=== PATIENT | female | born 1950 | race Two or more races ===

== ENCOUNTER 2021-11-11 08:00 | Outpatient (CLI) | payer OTHER | END 2021-11-11 08:30 | disposition home or self-care (01) | LOC: PPH VACUNA 08:00 | PROVIDERS: ATTEND Emergency Medicine Pediatric Emergency Medicine | DX: Z23 Encounter for immunization (principal) ==

== ENCOUNTER 2024-12-27 18:53 | Emergency (ER) | payer OTHER ==
[~2024-12-27] VITALS: Ht 157.5 cm; Wt 98.0 kg
[2024-12-27] MEDS ORDERED: HUMALOG100 UNIT/2 (19:47)
[2024-12-27] MEDS ORDERED: LANTUS SOL100 UNIT/1 (19:47)
[2024-12-27] MEDS ORDERED: TENORMIN25 MG (19:47)
[2024-12-27] MEDS ORDERED: COZAAR25 MG (19:47)
[2024-12-27] MEDS ORDERED: TRADJENTA5 MG (19:48)
[2024-12-27] MEDS ORDERED: KETOROLAC TROMETHAMINE 30 MG VIAL IV ONE ×2 (20:15→23:45)
[2024-12-27] MEDS ORDERED: KETOROLAC TROMETHAMINE 30 MG VIAL ONE ×2 (20:27→23:40)
[2024-12-27 20:45] LABS: BASO % 0.5 % (0.1-1.2); EOS # 0.12 (0.04-0.54); EOS % 1.3 % (0.7-7.0); HEMATOCRIT 42.3 % (34.1-44.9); HEMOGLOBIN 13.4 g/dL (11.2-15.7); LYMPH # 1.96 (1.18-3.74); LYMPH % 20.5 % (19.3-53.1); MONO # 0.62 (0.24-0.82); MONO % 6.5 % (4.7-12.5); NEUT # 6.77 (1.56-6.13); PLATELET COUNT 193 K/uL (163-369); RED BLOOD COUNT 5.37 M/uL (3.93-5.22); RED CELL DISTRIBUTION WIDTH 13.9 % (11.6-14.4)
[2024-12-27 21:19] LABS: ALBUMIN 3.9 gm/dL (3.4-5.0); BILIRUBIN TOTAL 0.29 mg/dL (0.3-1.2); CALCIUM 9.8 mg/dL (8.5-10.1); CREATININE SERUM 1.17 mg/dL (0.55-1.02); GFR 45.34; GLOBULINA 4.1 G/DL (2.4-3.5); POTASSIUM 4.92 mEq/L (3.5-5.1)
[2024-12-27 21:22] LABS: PH,URINE 5.5 (5.0-8.0); URINE APPEARANCE Cloudy; URINE BILIRRUBIN Negative (NEGATIVE); URINE BLOOD Negative; URINE COLOR Yellow; URINE KETONE Trace (NEGATIVE); URINE LEUKOCYTE Negative; URINE NITRATE Negative; URINE PROTEIN 30 (NEGATIVE); URINE UROBILINOGEN 0.2 E.U./dl
[2024-12-27 21:26] LABS: URINE EPITHELIAL CELLS 48.7 uL (0.0-38.8); URINE RBC 14.8 uL (0.0-20.8); URINE WBC 135.5 uL (0.0-23.2)
[2024-12-27] MEDS ORDERED: INSULIN REGULAR, HUMAN 1,000 UNIT/10 ML UNITS SUBCUTANEO ONE (21:30)
[2024-12-27 22:18] LABS: URINE BACTERIA > 9821.5 uL (0.0-1933); URINE CAST 0.88 uL (0.0-1.40); URINE GLUCOSE >=1000 MG/DL (NEGATIVE)
[2024-12-27 22:19] LABS: URINE YEAST FEW /hpf
[2024-12-27] MEDS ORDERED: DICLOFENAC SODI75 MG PO (23:40)
[2024-12-27] MEDS ORDERED: ORPHENADRINE CITRATE 30 MG/ML AMPUL ONE (23:40)
[2024-12-27] MEDS ORDERED: ORPHENADRINE CITRATE 30 MG/ML AMPUL IM ONE (23:45)
== END 2024-12-27 23:51 | disposition home or self-care (01) ==
LOC: ER 19:01
PROVIDERS: General Practice
DX: R10.9 Unspecified abdominal pain (principal); I10 Essential (primary) hypertension; E11.65 Type 2 diabetes mellitus with hyperglycemia; Z79.4 Long term (current) use of insulin